=== PATIENT | female | born 1975 | race Caucasian/White ===

== ENCOUNTER 2018-04-03 11:53 | Emergency (ER) | payer OTHER ==
[~2018-04-03] VITALS: Ht 162.6 cm; Wt 78.6 kg
[2018-04-03 11:56] VITALS: TEMP 37.1; Ht 162.6 cm; Wt 78.6 kg
--- NOTE | 2018-04-03 12:25 | EMERGENCY ROOM VISIT NOTE ---
History Report prepared by Wan: Philipp Mancera Under the Supervision of: Dr. Reza Orozco M.D. First contact with patient: 12:03 Chief Complaint: CARDIAC ASSESSMENT Stated Complaint: PAIN ACROSS BACK History of Present Illness The patient is a 43 year old female who presents to the Emergency Room with complaints of constant weakness to her arms beginning 5 days ago. The patient states she has a history of pneumonia, and she thought she was developing another incident of it. She reports her symptoms started on , and then they went away. The patient notes they developed again on Friday, and they have been constant since. She notes she also has pain in her shoulder blades 5 days ago. She reports she has been evaluated several times for each, each time she had a normal EKG. The patient notes she was evaluated by her PCP yesterday and had a normal EKG. She states she had lab results taken and was told her D-dimer was negative, and her troponin was positive. The patient reports she was given a muscle relaxer and told to come to the ED. She notes she has not picked up her muscle relaxer yet, and she was taking left over antibiotics because she has two infected teeth. The patient denies chest pain, shortness of breath, loss of consciousness, abdominal pain, nausea, vomiting, and diarrhea. Review of pre-hospital labs: Troponin of 25 (normal is 0-14). Negative D-dimer. Source of History: patient Onset: 5 days ago Position: arm (bilateral) Quality: other (weakness) Timing: constant Associated Symptoms: No LOC, No chest pain, No SOB, No nausea, No vomiting, No abdominal pain, No diarrhea Note: Associated symptoms: pain between her shoulder blades Review of Systems See HPI for pertinent positives and negatives. A total of ten systems were reviewed and were otherwise negative. Past Medical & Surgical Medical Problems: (1) No known problems Family History Cancer Social History Smoking Status: Current Every Day Smoker Alcohol Use: occasionally Drug Use: none Marital Status: Housing Status: lives with family Occupation Status: employed Current/Historical Medications No Active Prescriptions or Reported Meds Allergies Coded Allergies: No Known Allergies (Unverified , 04/03/18) Physical Exam Vital Signs Date Time Temp Pulse Resp B/P (MAP) Pulse Ox O2 Delivery O2 Flow Rate FiO2 04/03/18 16:12 68 16 113/75 99 04/03/18 14:32 67 16 140/76 97 Room Air 04/03/18 12:35 97 Room Air 04/03/18 12:35 98 Room Air 04/03/18 12:23 74 04/03/18 12:08 98 Room Air 04/03/18 11:56 37.1 90 20 130/83 97 Room Air Physical Exam Physical Exam GENERAL: She is oriented to person, place, and time. She appears well- developed and well-nourished. She does not appear distressed. ____ HENT: Exam performed. Head: Normocephalic and atraumatic. Right Ear: External ear normal. No mastoid tenderness. Left Ear: External ear normal. No mastoid tenderness. Mouth/Throat: The oropharynx is clear and moist. No trismus in the jaw. No dental abscesses or uvula swelling. No oropharyngeal exudate or tonsillar abscesses. ____ EYES: Conjunctivae and EOM are normal. Pupils are equal, round, and reactive to light. Right eye exhibits no discharge. Left eye exhibits no discharge. No scleral icterus. ____ NECK: Normal range of motion. Neck supple. No JVD present. No spinous process tenderness present. No carotid bruit present. No rigidity. No tracheal deviation and normal range of motion present. No Brudzinski's sign and no Kernig 's sign noted. ____ CV: Normal rate, regular rhythm, normal heart sounds and intact distal pulses. There is no peripheral edema. Palpable radial pulses bue. ____ PULM/CHEST: Effort normal and breath sounds normal. No respiratory distress. No stridor. She has no wheezes. She has no rales. Chest Wall: She exhibits no tenderness. ____ ABD: The abdomen is soft. Bowel sounds are normal. She has no distension. No mass is present. There is no tenderness. There is no rebound, no guarding, no Salas's sign and no tenderness at McBurney's point. Rovsig negative MUSC/SKEL: Normal range of motion. There is no peripheral edema, tenderness or deformity. LYMPH: No cervical adenopathy. ____ NEURO: She is alert and oriented to person, place, and time. She has normal strength. No cranial nerve deficit or sensory deficit. Coordination and gait normal. GCS eye subscore is 4. GCS verbal subscore is 5. GCS motor subscore is 6. Cerebellar tests wnl. ____ SKIN: Skin is warm and dry. She is not diaphoretic. ____ PSYCH: She has a normal mood and affect. Her behavior is normal. Judgment and thought content normal. ____ Medical Decision & Procedures ER Provider Diagnostic Interpretation: Radiology results as stated below per my review and radiologist interpretation: CHEST COMBO ANGIOGRAPHY CLINICAL HISTORY: 43 years-old Female presenting with pain across the back, clinical concern for dissection. TECHNIQUE: Multidetector CT angiography of the chest was performed before and after the administration of intravenous contrast. 3-D volumetric and/or maximum intensity projection (MIP) images were subsequently reconstructed for review. IV contrast: 119 mL of Optiray 320. A dose lowering technique was used consistent with the principles of ALARA (as low as reasonably achievable). COMPARISON: None. CT DOSE (mGy.cm): The estimated cumulative dose is 730.23 mGy.cm. FINDINGS: Clinical Pharmacy Manager topogram: Unremarkable. Vasculature: The study is adequate for assessment of the aorta. Precontrast imaging demonstrates no evidence of intramural hematoma. Postcontrast imaging demonstrates no evidence of dissection, penetrating ulcer, or aneurysm. Allowing for timing of the contrast bolus, no gross evidence of a filling defect within the pulmonary arteries to suggest embolus. Main pulmonary artery is not enlarged. No flattening of the interventricular septum. No intracardiac filling defect. No reflux of contrast into the hepatic veins. Remaining chest: On soft tissue windows, normal thyroid and thoracic inlet. No axillary, supraclavicular, hilar, or mediastinal lymphadenopathy. Normal heart size. No pericardial or pleural effusion. Upper abdomen normal. On lung windows, minimal dependent changes likely atelectasis. Trace paraseptal emphysematous changes with an upper lobe predominance. No other focal nodule or infiltrate. Airways patent. On bone windows, normal osseous structures. IMPRESSION: 1. No evidence of acute aortic injury. No acute intrathoracic pathology. 2. Trace paraseptal emphysematous changes. Electronically signed by: Jorge Box M.D. 04/03/2018 1:41 PM Dictated Date/Time: 04/03/2018 1:33 PM CHEST 2 VIEWS ROUTINE CLINICAL HISTORY: 43 years-old Female presenting with cp. TECHNIQUE: PA and lateral views of the chest were obtained. COMPARISON: 10/25/2014. FINDINGS: Cardiomediastinal silhouette normal. Lungs and pleural spaces clear. Osseous structures normal. Upper abdomen normal. IMPRESSION: 1. No acute cardiopulmonary disease. Electronically signed by: Jorge Box M.D. 04/03/2018 12:50 PM Dictated Date/Time: 04/03/2018 12:49 PM Laboratory Results 04/03/18 12:26 Red Blood Count 4.34, Mean Corpuscular Volume 86.9, Mean Corpuscular Hemoglobin 30.6, Mean Corpuscular Hemoglobin Concent 35.3, Mean Platelet Volume 8.7, Neutrophils (%) (Auto) 64.1, Lymphocytes (%) (Auto) 28.8, Monocytes (%) (Auto) 5.3, Eosinophils (%) (Auto) 1.1, Basophils (%) (Auto) 0.4, Neutrophils # (Auto) 5.70, Lymphocytes # (Auto) 2.57, Monocytes # (Auto) 0.47, Eosinophils # (Auto) 0.10, Basophils # (Auto) 0.04 04/03/18 12:26 Test 04/03/18 12:26 04/03/18 15:52 White Blood Count 8.91 K/uL (4.8-10.8) Red Blood Count 4.34 M/uL (4.2-5.4) Hemoglobin 13.3 g/dL (12.0-16.0) Hematocrit 37.7 % (37-47) Mean Corpuscular Volume 86.9 fL (80-100) Mean Corpuscular Hemoglobin 30.6 pg (25-34) Mean Corpuscular Hemoglobin Concent 35.3 g/dl (32-36) Platelet Count 329 K/uL (130-400) Mean Platelet Volume 8.7 fL (7.4-10.4) Neutrophils (%) (Auto) 64.1 % Lymphocytes (%) (Auto) 28.8 % Monocytes (%) (Auto) 5.3 % Eosinophils (%) (Auto) 1.1 % Basophils (%) (Auto) 0.4 % Neutrophils # (Auto) 5.70 K/uL (1.4-6.5) Lymphocytes # (Auto) 2.57 K/uL (1.2-3.4) Monocytes # (Auto) 0.47 K/uL (0.11-0.59) Eosinophils # (Auto) 0.10 K/uL (0-0.5) Basophils # (Auto) 0.04 K/uL (0-0.2) RDW Standard Deviation 41.6 fL (36.4-46.3) RDW Coefficient of Variation 12.8 % (11.5-14.5) Immature Granulocyte % (Auto) 0.3 % Immature Granulocyte # (Auto) 0.03 K/uL (0.00-0.02) Anion Gap 5.0 mmol/L (3-11) Est Creatinine Clear Calc Drug Dose 72.9 ml/min Estimated GFR () 78.6 Estimated GFR (Non- 67.8 BUN/Creatinine Ratio 8.4 (10-20) Calcium Level 8.7 mg/dl (8.5-10.1) Troponin I < 0.015 ng/ml (0-0.045) Pro-B-Type Natriuretic Peptide 53 pg/ml (0-450) Bedside Troponin I < 0.030 ng/ml (0-0.045) Laboratory results reviewed by me Review of pre-hospital labs: Troponin of 25 (normal is 0-14). Negative D-dimer. ECG Per My Interpretation Indication: back/shoulder pain Rate (beats per minute): 73 Rhythm: sinus with SA Findings: other (ID, QRS, and QTc are wnl. No ST elevation or depression.) ED Course 1210: The patient was evaluated in room C01B. A complete history and physical exam was performed.Review of pre-hospital labs: Troponin of 25 (normal is 0-14) . Negative D-dimer. 1405: I reevaluated the patient. She is feeling better. CTA of the chest negative for dissection, labs within normal limits including troponin. We will repeat 3 hour troponin if within normal limits will discharge patient with follow-up PCP. 1615: Vital signs stable, physical exam within normal limits, repeat troponin within normal limits, discharge with follow-up PCP. DISCHARGE - Plan of care discussed with patient and questions answered. The patient was given both verbal and printed discharge instructions. The patient verbalized understanding and ability to comply. The patient is to seek outpatient follow up as noted in the discharge instructions. The patient verbalized understanding and ability to comply. The patient is discharged in stable condition. The patient was instructed to return for worsening symptoms. Medical Decision 1405: I reevaluated the patient. She is feeling better. CTA of the chest negative for dissection, labs within normal limits including troponin. We will repeat 3 hour troponin if within normal limits will discharge patient with follow-up PCP. 1615: Vital signs stable, physical exam within normal limits, repeat troponin within normal limits, discharge with follow-up PCP. DISCHARGE - Plan of care discussed with patient and questions answered. The patient was given both verbal and printed discharge instructions. The patient verbalized understanding and ability to comply. The patient is to seek outpatient follow up as noted in the discharge instructions. The patient verbalized understanding and ability to comply. The patient is discharged in stable condition. The patient was instructed to return for worsening symptoms. Medication Reconcilliation Current Medication List: was personally reviewed by me Blood Pressure Screening Patient's blood pressure: Elevated blood pressure Blood pressure disposition: Elevated BP felt to be situational Impression Primary Impression: Chest pain Scribe Attestation The scribe's documentation has been prepared under my direction and personally reviewed by me in its entirety. I confirm that the note above accurately reflects all work, treatment, procedures, and medical decision making performed by me. The chart was completed utilizing [employer] Speech voice recognition software. Grammatical errors, random word insertions, pronoun errors, and incomplete sentences are an occasional consequence of this system due to software limitations, ambient noise, and hardware issues. Any formal questions or concerns about the content, text, or information contained within the body of this dictation should be directly addressed to the physician for clarification. Departure Information Prescriptions No Active Prescriptions or Reported Meds Referrals Kofi Valdes M.D. (MEDICAL) (PCP) Patient Instructions My [facility] Problem Qualifiers Primary Impression: Chest pain Chest pain type: unspecified Qualified Codes: R07.9 - Chest pain, unspecified
[2018-04-03] MEDS ORDERED: OPTIRAY 320 IV PRN (12:30)
[2018-04-03 12:35] VITALS: O2SAT 98
[2018-04-03 12:37] LABS: BASO % 0.4 %; BASO ABS # 0.04 K/uL (0-0.2); EOS % 1.1 %; HEMATOCRIT 37.7 % (37-47); HEMOGLOBIN 13.3 g/dL (12.0-16.0); IG# 0.03 K/uL (0.00-0.02); LYMPH % 28.8 %; LYMPH ABS # 2.57 K/uL (1.2-3.4); MEAN CELL VOLUME 86.9 fL (80-100); MEAN CORPUSCULAR HEMOGLOBIN 30.6 pg (25-34); MEAN CORPUSCULAR HGB CONC 35.3 g/dl (32-36); MEAN PLATELET VOLUME 8.7 fL (7.4-10.4); MONO % 5.3 %; MONO ABS # 0.47 K/uL (0.11-0.59); NEUT % 64.1 %; PLATELET COUNT 329 K/uL (130-400); RED CELL DISTRIBUTION WIDTH CV 12.8 % (11.5-14.5); RED CELL DISTRIBUTION WIDTH SD 41.6 fL (36.4-46.3); WHITE BLOOD COUNT 8.91 K/uL (4.8-10.8)
--- NOTE | 2018-04-03 12:51 | DIAGNOSTIC IMAGING REPORT ---
CHEST 2 VIEWS ROUTINE CLINICAL HISTORY: 43 years-old Female presenting with cp. TECHNIQUE: PA and lateral views of the chest were obtained. COMPARISON: 10/25/2014. FINDINGS: Cardiomediastinal silhouette normal. Lungs and pleural spaces clear. Osseous structures normal. Upper abdomen normal. IMPRESSION: 1. No acute cardiopulmonary disease. Electronically signed by: Jorge Box M.D. 04/03/2018 12:50 PM Dictated Date/Time: 04/03/2018 12:49 PM
[2018-04-03 12:58] LABS: BLOOD UREA NITROGEN 9 mg/dl (7-18); CALCIUM 8.7 mg/dl (8.5-10.1); CARBON DIOXIDE 26 mmol/L (21-32); CREATININE 1.02 mg/dl (0.60-1.20); GLUCOSE 129 mg/dl (70-99); POTASSIUM 3.7 mmol/L (3.5-5.1); SODIUM 139 mmol/L (136-145)
--- NOTE | 2018-04-03 13:42 | DIAGNOSTIC IMAGING REPORT ---
CHEST COMBO ANGIOGRAPHY CLINICAL HISTORY: 43 years-old Female presenting with pain across the back, clinical concern for dissection. TECHNIQUE: Multidetector CT angiography of the chest was performed before and after the administration of intravenous contrast. 3-D volumetric and/or maximum intensity projection (MIP) images were subsequently reconstructed for review. IV contrast: 119 mL of Optiray 320. A dose lowering technique was used consistent with the principles of ALARA (as low as reasonably achievable). COMPARISON: None. CT DOSE (mGy.cm): The estimated cumulative dose is 730.23 mGy.cm. FINDINGS: Histopathology Technician topogram: Unremarkable. Vasculature: The study is adequate for assessment of the aorta. Precontrast imaging demonstrates no evidence of intramural hematoma. Postcontrast imaging demonstrates no evidence of dissection, penetrating ulcer, or aneurysm. Allowing for timing of the contrast bolus, no gross evidence of a filling defect within the pulmonary arteries to suggest embolus. Main pulmonary artery is not enlarged. No flattening of the interventricular septum. No intracardiac filling defect. No reflux of contrast into the hepatic veins. Remaining chest: On soft tissue windows, normal thyroid and thoracic inlet. No axillary, supraclavicular, hilar, or mediastinal lymphadenopathy. Normal heart size. No pericardial or pleural effusion. Upper abdomen normal. On lung windows, minimal dependent changes likely atelectasis. Trace paraseptal emphysematous changes with an upper lobe predominance. No other focal nodule or infiltrate. Airways patent. On bone windows, normal osseous structures. IMPRESSION: 1. No evidence of acute aortic injury. No acute intrathoracic pathology. 2. Trace paraseptal emphysematous changes. Electronically signed by: Jorge Box M.D. 04/03/2018 1:41 PM Dictated Date/Time: 04/03/2018 1:33 PM
[2018-04-03 16:12] VITALS: BP 113/75; PULSE 68; O2SAT 99
== END 2018-04-03 16:13 | disposition home or self-care (01) ==
LOC: C.EDB 11:54 → C.EDC 16:13
DX: R07.9 Chest pain, unspecified (principal); F17.200 Nicotine dependence, unspecified, uncomplicated